=== PATIENT | female | born 1955 | race Caucasian/White ===

== ENCOUNTER → 2017-02-05 | Outpatient (CLI) | payer MEDICARE ==
[2017-02-05 12:13] LABS: EKG EKG PERFORMED
[2017-02-05 13:08] LABS: Basophils # (A) 0.1 k/uL (0-0.2); Basophils % (A) 1 %; CH 32.9; CHCM 34.3; Eosinophils # (A) 0.4 k/uL (0-0.7); Eosinophils % (A) 4 %; HCT 51.3 % (34.0-46.0); HDW 2.45; HGB 17.1 gm/dL (11.4-16.0); Luc # (Auto) 0.18; Luc % (Auto) 2; Lymphocytes # (A) 2.9 k/uL (1.0-4.8); Lymphocytes % (A) 31 %; MCH 32.2 pg (25.0-35.0); MCHC 33.4 g/dL (31.0-37.0); MCV 96.5 fL (80.0-100.0); Mean Platelet Volume 7.5; Monocytes # (A) 0.4 k/uL (0-1.0); Monocytes % (A) 4 %; Neutrophils # (A) 5.4 k/uL (1.3-7.7); Neutrophils % (A) 59 %; RBC 5.31 m/uL (3.80-5.40); WBC 9.3 k/uL (3.8-10.6); WBC (Perox) 8.92
[2017-02-05 13:17] LABS: Anion Gap 15 mmol/L; Blood Urea Nitrogen 19 mg/dL (7-17); Calcium 10.1 mg/dL (8.4-10.2); Carbon Dioxide 26 mmol/L (22-30); Chloride 104 mmol/L (98-107); Glucose 109 mg/dL (74-99); Non-African American GFR(MDRD) >60 (>60 ml/min/1.73 sqM); Sodium 145 mmol/L (137-145)
== END | disposition home or self-care (01) ==
LOC: LABPAT 12:03
PROVIDERS: ATTEND Obstetrics & Gynecology
DX: Z01.810 Encounter for preprocedural cardiovascular examination (principal); Z01.812 Encounter for preprocedural laboratory examination
CPT/HCPCS: 80048; 85025; 93005

== ENCOUNTER 2017-02-13 05:43 | Inpatient (IN) | payer MEDICARE ==
[2017-02-06 10:37] VITALS: BMI 42.9
[~2017-02-13 05:43] MED LIST: CLINDAMYCIN 900 MG in DEXTROSE 5% IN WATER 50 ML IVPB ONE
[2017-02-13] MEDS ORDERED: MIDAZOLAM 2 MG/2 ML VIAL IV PRN (05:59)
[2017-02-13] MEDS ORDERED: DEXAMETHASONE SOD PHOSPHATE 10 MG/ML 1 ML VIAL IV ONE (05:59)
--- NOTE | 2017-02-13 06:04 | P.HPOB ---
History of Present Illness H&P Date: 02/13/17 Chief Complaint: complex hyperplasia with atypia 61 year old G0 presents for Total laparoscopic hysterectomy bilateral salpingo- oopherectomy with da carlos alberto due to complex hyperplasia with atypia on endometrial biopsy. Review of Systems All systems: negative Constitutional: Denies chills, Denies fever Eyes: denies blurred vision, denies pain Ears, nose, mouth and throat: Denies headache, Denies sore throat Cardiovascular: Denies chest pain, Denies shortness of breath Respiratory: Denies cough Gastrointestinal: Denies abdominal pain, Denies diarrhea, Denies nausea, Denies vomiting Genitourinary: Denies dysuria, Denies hematuria Musculoskeletal: Denies myalgias Integumentary: Denies pruritus, Denies rash Neurological: Denies numbness, Denies weakness Psychiatric: Denies anxiety, Denies depression Endocrine: Denies fatigue, Denies weight change Past Medical History Past Medical History: Diabetes Mellitus, GERD/Reflux, Hypertension, Osteoarthritis (OA), Pneumonia, Sleep Apnea/CPAP/BIPAP Additional Past Medical History / Comment(s): left ventricular hypertrophy, hx pneumonia and high BP, occ PVC, no CPAP used, History of Any Multi-Drug Resistant Organisms: None Reported Past Surgical History: Adenoidectomy, Joint Replacement, Tonsillectomy Additional Past Surgical History / Comment(s): left eye surgery, D&C x 3, laproscopic and lysis of adhesions, rt knee replacement, left foot surgery as child Past Anesthesia/Blood Transfusion Reactions: Motion Sickness Past Psychological History: No Psychological Hx Reported Smoking Status: Former smoker Past Alcohol Use History: None Reported Past Drug Use History: None Reported - Past Family History Mother Family Medical History: No Reported History Medications and Allergies Home Medications Medication Instructions Recorded Confirmed Type Acetaminophen [Tylenol Arthritis] 650 mg PO DIRECTED PRN 02/06/17 02/06/17 History Aspirin 325 mg PO DAILY 02/06/17 02/06/17 History Citalopram Hydrobromide [CeleXA] 20 mg PO HS 02/06/17 02/06/17 History Ergocalciferol [Vitamin D2] 50,000 unit PO FR 02/06/17 02/06/17 History Furosemide [Lasix] 40 mg PO BID 02/06/17 02/06/17 History Linagliptin [Tradjenta] 5 mg PO DAILY 02/06/17 02/06/17 History Multivitamins, Thera [Multivitamin 1 tab PO DAILY 02/06/17 02/06/17 History (formulary)] Potassium Chloride ER [K-Dur 20] 20 meq PO BID 02/06/17 02/06/17 History diphenhydrAMINE [Benadryl] 25 mg PO DIRECTED PRN 02/06/17 02/06/17 History glyBURIDE [Diabeta] 2.5 mg PO AC-BID 02/06/17 02/06/17 History metFORMIN HCL 1,000 mg PO BID 02/06/17 02/06/17 History Allergies Allergy/AdvReac Type Severity Reaction Status Date / Time NSAIDS (Non-Steroidal Allergy Anaphylaxis Verified 02/06/17 10:24 Anti-Inflamma Penicillins Allergy per Verified 02/06/17 10:24 allergy testing scallops Allergy Unknown Verified 02/06/17 10:24 walnut Allergy Unknown Verified 02/06/17 10:24 grass,trees Allergy Unknown Uncoded 02/06/17 10:24 Exam Osteopathic Statement: *. No significant issues noted on an osteopathic structural exam other than those noted in the History and Physical/Consult. Heart: Regular rate and rhythm Lungs: Clear to auscultation bilaterally Abdomen: Soft, nontender Extremities: Negative Homans sign Assessment and Plan (1) Complex endometrial hyperplasia with atypia Status: Acute Plan: 1. Total laparoscopic hysterectomy with bilateral salpingo-oophorectomy using da Carlos Alberto
[2017-02-13 06:31] LABS: Glucose,Whole Blood 119 mg/dL (75-99)
[2017-02-13] MEDS: LACTATED RINGERS 1,000 ML IV SCH ×3 (06:35→22:04)
[2017-02-13] MEDS: ONDANSETRON 4 MG/2 ML VIAL IVP ONE ×2 (06:36→10:42)
[2017-02-13] MEDS ORDERED: PROPOFOL 10 MG/ML 20 ML VIAL IV ONE (07:15)
[2017-02-13] MEDS ORDERED: LIDOCAINE 1% INJ 10MG/ML (20 ML MDV) ONE (07:15)
[2017-02-13] MEDS ORDERED: HYDROmorphone (PF) 1 MG/ML ONE (07:15)
[2017-02-13] MEDS ORDERED: MIDAZOLAM 2 MG/2 ML VIAL ONE (07:15)
[2017-02-13] MEDS ORDERED: NEOSTIGMINE 1 MG/ML 10 ML VIAL ONE (07:15)
[2017-02-13] MEDS ORDERED: SUCCINYLCHOLINE CHLORIDE 100 MG/5 ML SYR IV ONE (07:15)
[2017-02-13] MEDS ORDERED: fentaNYL (PF) 50 MCG/ML 2 ML AMP ONE (07:15)
[2017-02-13] MEDS ORDERED: ePHEDrine 50 MG/ML 1 ML AMP ONE (07:15)
[2017-02-13] MEDS ORDERED: PHENYLEPHRINE-0.9% NACL SYG 1 MG/10 ML SYRINGE ONE (07:15)
[2017-02-13] MEDS ORDERED: ROCURONIUM BROMIDE 10 MG/ML 10 ML VIAL IV ONE (07:15)
[2017-02-13] MEDS ORDERED: GLYCOPYRROLATE 0.2 MG/ML 2 ML VIAL ONE (07:15)
[2017-02-13] MEDS ORDERED: BUPIVACAINE (PF) 0.25% 30 ML VIAL SQ ONE (07:46)
[2017-02-13 10:38] LABS: Glucose,Whole Blood 208 mg/dL (75-99)
[2017-02-13] MEDS: HYDROmorphone 1 MG/ML 1 ML SYRINGE IVP PRN ×2 (10:42→10:48)
[2017-02-13] MEDS ORDERED: INSULIN LISPRO (humaLOG) 300 UNIT/3 ML VIAL SQ ONE (11:11)
[2017-02-13] MEDS ORDERED: ACETAMINOPHEN IV (For NPO) 1,000 MG in EMPTY BAG 1 BAG IVPB PRN (12:01)
[2017-02-13] MEDS ORDERED: SIMETHICONE 80 MG CHEWABLE PO PRN (12:01)
[2017-02-13] MEDS ORDERED: HYDROmorphone PCA 5 MG/25 ML SYRINGE IV PRN (12:01)
[2017-02-13] MEDS ORDERED: NALOXONE 0.4 MG/ML 1 ML VIAL IV PRN (12:01)
[2017-02-13] MEDS ORDERED: ONDANSETRON 4 MG/2 ML VIAL IVP PRN (12:01)
[2017-02-13] MEDS ORDERED: METOCLOPRAMIDE 5 MG/ML 2 ML VIAL IVP PRN (12:01)
[2017-02-13] MEDS ORDERED: ZOLPIDEM 5 MG TAB PO PRN (12:01)
[2017-02-13] MEDS ORDERED: ACETAMINOPHEN TAB 325 MG TAB PO PRN (13:13)
[2017-02-13] MEDS ORDERED: diphenhydrAMINE 25 MG CAP PO PRN (13:13)
[2017-02-13] MEDS: glipiZIDE 5 MG TAB PO SCH (16:48)
[2017-02-13] MEDS: HEPARIN SODIUM,PORCINE 5,000 UNIT/ML 1 ML VIAL SQ SCH (16:56)
[2017-02-13] MEDS: FUROSEMIDE 40 MG TAB PO SCH (16:56)
[2017-02-13] MEDS: INSULIN LISPRO (humaLOG) 300 UNIT/3 ML VIAL SQ SCH ×2 (17:22→22:02)
[2017-02-13 17:40] LABS: Glucose,Whole Blood 153 mg/dL (75-99)
[2017-02-13 21:31] LABS: Glucose,Whole Blood 139 mg/dL (75-99)
[2017-02-13] MEDS: CITALOPRAM HYDROBROMIDE 20 MG TAB PO SCH (21:59)
[2017-02-13] MEDS: POTASSIUM CHLORIDE ER 20 MEQ TAB.ER PO SCH (21:59)
[2017-02-13] MEDS: SENNOSIDES-DOCUSATE SODIUM 1 EACH TAB PO SCH (21:59)
[2017-02-14] MEDS: metFORMIN 500 MG TAB PO SCH ×3 (00:05→20:34)
[2017-02-14] MEDS: HEPARIN SODIUM,PORCINE 5,000 UNIT/ML 1 ML VIAL SQ SCH ×3 (00:29→17:18)
[2017-02-14] MEDS ORDERED: LIDOCAINE 1% INJ 10MG/ML (20 ML MDV) ONE (07:15)
[2017-02-14] MEDS ORDERED: PROPOFOL 10 MG/ML 20 ML VIAL IV ONE (07:15)
[2017-02-14] MEDS ORDERED: ePHEDrine 50 MG/ML 1 ML AMP ONE (07:15)
[2017-02-14] MEDS ORDERED: MIDAZOLAM 2 MG/2 ML VIAL ONE (07:15)
[2017-02-14] MEDS ORDERED: fentaNYL (PF) 50 MCG/ML 2 ML AMP ONE (07:15)
[2017-02-14] MEDS ORDERED: GLYCOPYRROLATE 0.2 MG/ML 2 ML VIAL ONE (07:15)
[2017-02-14] MEDS ORDERED: HYDROmorphone (PF) 1 MG/ML ONE (07:15)
[2017-02-14] MEDS ORDERED: PHENYLEPHRINE-0.9% NACL SYG 1 MG/10 ML SYRINGE ONE (07:15)
[2017-02-14] MEDS ORDERED: SUCCINYLCHOLINE CHLORIDE 100 MG/5 ML SYR IV ONE (07:15)
[2017-02-14] MEDS ORDERED: NEOSTIGMINE 1 MG/ML 10 ML VIAL ONE (07:15)
[2017-02-14] MEDS ORDERED: ROCURONIUM BROMIDE 10 MG/ML 10 ML VIAL IV ONE (07:15)
[2017-02-14 07:31] LABS: Glucose,Whole Blood 107 mg/dL (75-99)
[2017-02-14 07:52] LABS: Basophils % (A) 0 %; CH 32.1; CHCM 33.4; Eosinophils # (A) 0.1 k/uL (0-0.7); Eosinophils % (A) 0 %; HCT 41.4 % (34.0-46.0); HDW 2.36; Luc # (Auto) 0.13; Luc % (Auto) 1; Lymphocytes # (A) 2.6 k/uL (1.0-4.8); Lymphocytes % (A) 23 %; MCH 32.9 pg (25.0-35.0); MCHC 34.1 g/dL (31.0-37.0); MCV 96.4 fL (80.0-100.0); Mean Platelet Volume 7.5; Monocytes # (A) 0.6 k/uL (0-1.0); Monocytes % (A) 5 %; Neutrophils % (A) 70 %; RBC 4.29 m/uL (3.80-5.40); RDW 12.8 % (11.5-15.5); WBC 11.4 k/uL (3.8-10.6); WBC (Perox) 11.54
[2017-02-14 08:07] LABS: HGB 14.1 gm/dL (11.4-16.0)
--- NOTE | 2017-02-14 08:13 | P.OP ---
Date of Procedure: 02/13/17 Preoperative Diagnosis: 1. Complex hyperplasia with atypia Postoperative Diagnosis: 1. Complex hyperplasia with atypia 2. Cervical fibroid 3. Enlarged right ovary and cystic left adnexa Procedure(s) Performed: Diagnostic laparoscopy, total abdominal hysterectomy bilateral salpingo- oophorectomy Implants: Anesthesia: MILTONA Surgeon: Jennifer Ding Front Office Associate #1: Parish Swain Estimated Blood Loss (ml): 150 IV fluids (ml): 1,400 Urine output (ml): 200 Pathology: other (Uterus, cervix, bilateral tubes and ovaries) Condition: stable Disposition: PACU Indications for Procedure: Endometrial biopsy in the office showed complex hyperplasia with atypia Operative Findings: The uterus sounded to 12 cm, the laparoscopy revealed that the uterus had a very large fibroid in the posterior aspect near the cervix obliterating the posterior cul-de-sac. She had an enlarged right ovary and a cystic area possibly of the left fallopian tube or the left ovary. Description of Procedure: Patient taken the operating room where general anesthesia was obtained without difficulty. She is prepped and draped in normal sterile fashion dorsal lithotomy position, legs placed in the Alessio stirrups. Weighted speculum placed in the vagina and the anterior lip the cervix was grasped with single- tooth tenaculum. The uterus sounded to 12 cm and the cervix diameter was 3.5 cm. The appropriate manipulator tip and ring were placed on the Matilde manipulator. The Matilde manipulator was then placed in the uterus. Bunch catheter was also placed. Attention was then turned to the abdomen and gloves were changed. A 5 mm supraumbilical incision was made the scalpel and a 5 mm optical trocar was placed under direct visualization. 10 cm to the right of this and 2 cm down a 5 mm incision was made and 8 mm da Tila port was placed under direct visualization. Same measurements on the opposite side of the patient's abdomen, the 5 mm incision was made and 8 mm da Tila port was placed under direct visualization. In the left upper quadrant a 10 mm incision was made and a 10 mm optical trocar was placed under direct visualization. After the patient was placed in seated Trendelenburg we surveyed the pelvis. There was found to be a very large posterior fibroid very close to the cervix obliterating the view of the entire cervix and posterior cul-de-sac. I was not able to see around the uterosacral ligaments and get a proper view of the adnexa. The manipulation of the uterus was difficult. I felt at this point that a robotic hysterectomy was going to be quite difficult and possibly impossible at this point. The patient was not tolerating Trendelenburg very well either from an anesthesia standpoint. It was felt safest for the patient to convert to an open procedure and do a total abdominal hysterectomy at this point. The trochars were removed and the port sites were closed with 4-0 Vicryl in a subcuticular fashion. The patient was placed in supine position she was prepped again and redraped. A Pfannenstiel skin incision was made with scalpel carried through to underlying layer fascia with the Bovie. Fascia was incised in midline and carried bilaterally with Fontana scissors. The superior aspect fascial incision was elevated and the underlying rectus muscles were dissected off with the Mayos. The inferior aspect of same incision with 6 elevated and the underlying rectus muscles were dissected off with the Mayos. The rectus muscles were in the midline peritoneum was identified tented up and entered sharply with the Metzenbaums. The incision was extended superiorly and inferiorly with good visualization of the bladder. The [place] retractor was then placed. The bowels were packed away with moist laparotomy sponges. The cornu of the uterus were grasped with curved Brinda clamps. The fibroid was seen to be coming off the posterior aspect of the uterus more on the left side. The cystic lesion coming off the left adnexa was clamped at its pedicle cut and suture ligated. It was removed and taken for specimen. The left round ligament fallopian tube and utero-ovarian ligament were clamped cut and suture ligated. The broad ligament was clamped cut and suture ligated. Then the enlarged right ovary and right fallopian tube were lifted the right infundibulopelvic ligament was clamped cut and suture ligated. The broad ligament on this side was then clamped cut and suture ligated. The bladder flap was then taken down using Metzenbaums. The right lower uterine artery was skeletonized and clamped cut and suture ligated. The left broad ligament was dissected down around the fibroid and forward towards the bladder flap. The left uterine artery was skeletonized clamped cut and suture ligated. The uterosacral ligaments were clamped cut and suture ligated. This was done in a stepwise fashion down the cervix to the level of the cervicovaginal junction. Once we entered the cervicovaginal junction the uterus was removed cervix intact. The opening to the vagina was closed using 0 Vicryl in a running locked fashion. The left ovary was then lifted using a [place] and the infundibulopelvic ligament was clamped cut and suture ligated. The ovary was removed and sent with the specimen. The pelvis was copiously irrigated. Hemostasis was assured. All instruments and sponges were removed from the pelvis. Peritoneum was reapproximated with 2-0 Vicryl in a running fashion. The fascia was reapproximated with 0 Vicryl in interrupted fashion. The fascia was reapproximated with 0 Vicryl in a running fashion. The subcutaneous tissues closed with 3-0 Vicryl in a running fashion. The skin was closed with ramonita. Patient tolerated the procedure well, sponge and instrument counts are correct 2 and she was taken to recovery room in stable condition.
--- NOTE | 2017-02-14 08:17 | P.PN ---
Progress Note - Text Status post total abdominal hysterectomy and left salpingo-oophorectomy postoperative day #1 Patient seen and examined. She is tolerating clears. She is feeling rumbling in her stomach but has not passed gas yet. Her Bunch catheter was removed about an hour ago but she has not voided yet. Her pain is well-controlled with minimal use of her [facility]. Denies nausea, vomiting, chest pain, shortness of breath or calf pain. She is ambulating around her room without problems. Vital signs are stable Heart regular rhythm Lungs clear to auscultation Abdomen soft, nontender, incision clean, dry, intact Extremities negative Homans sign Assessment: 1. status post total abdominal hysterectomy bilateral salpingo- oophorectomy postoperative day #1 2. Diabetes mellitus Plan 1. DC [facility] and by mouth pain medication 2. Continue blood sugar control and increase ambulation regular diet with positive flatus
[2017-02-14] MEDS: POTASSIUM CHLORIDE ER 20 MEQ TAB.ER PO SCH ×2 (08:33→20:35)
[2017-02-14] MEDS: SENNOSIDES-DOCUSATE SODIUM 1 EACH TAB PO SCH ×2 (08:33→20:35)
[2017-02-14] MEDS: glipiZIDE 5 MG TAB PO SCH ×2 (08:34→17:18)
[2017-02-14] MEDS: FUROSEMIDE 40 MG TAB PO SCH ×2 (08:34→17:18)
[2017-02-14] MEDS: Acetaminophen-Codeine 300-30mg TAB PO PRN ×3 (10:01→21:58)
[2017-02-14] MEDS ORDERED: ACETAMINOPHEN TAB 325 MG TAB PO PRN (10:08)
[2017-02-14 10:12] LABS: Hemoglobin A1C 5.8 % (4.2-6.1)
[2017-02-14 11:48] LABS: Glucose,Whole Blood 111 mg/dL (75-99)
[2017-02-14] MEDS: LINAGLIPTIN 5 MG TABLET PO SCH (11:52)
[2017-02-14] MEDS: INSULIN LISPRO (humaLOG) 300 UNIT/3 ML VIAL SQ SCH ×3 (11:52→23:09)
[2017-02-14 17:53] LABS: Glucose,Whole Blood 83 mg/dL (75-99)
[2017-02-14] MEDS: CITALOPRAM HYDROBROMIDE 20 MG TAB PO SCH (20:36)
[2017-02-14 20:44] LABS: Glucose,Whole Blood 75 mg/dL (75-99)
[2017-02-15] MEDS: HEPARIN SODIUM,PORCINE 5,000 UNIT/ML 1 ML VIAL SQ SCH ×2 (00:19→08:23)
[2017-02-15 07:46] LABS: Glucose,Whole Blood 98 mg/dL (75-99)
[2017-02-15] MEDS: INSULIN LISPRO (humaLOG) 300 UNIT/3 ML VIAL SQ SCH (07:53)
[2017-02-15] MEDS: SENNOSIDES-DOCUSATE SODIUM 1 EACH TAB PO SCH (08:22)
[2017-02-15] MEDS: FUROSEMIDE 40 MG TAB PO SCH (08:23)
[2017-02-15] MEDS: metFORMIN 500 MG TAB PO SCH (08:24)
[2017-02-15] MEDS: LINAGLIPTIN 5 MG TABLET PO SCH (08:24)
[2017-02-15] MEDS: glipiZIDE 5 MG TAB PO SCH (08:25)
[2017-02-15] MEDS: POTASSIUM CHLORIDE ER 20 MEQ TAB.ER PO SCH (08:25)
[2017-02-15 09:28] VITALS: BP 149/76; PULSE 95; RESP 19; TEMP 97.6
[2017-02-15] MEDS: Acetaminophen-Codeine 300-30mg TAB PO PRN (09:46)
--- NOTE | 2017-02-15 10:47 | P.DS ---
Providers Date of admission: 02/13/17 10:23 Expected date of discharge: 02/15/17 Attending physician: Jennifer Ding Primary care physician: Sin Aguilera - Discharge Diagnosis(es) (1) Complex endometrial hyperplasia with atypia Current Visit: Yes Status: Acute (2) Status post total abdominal hysterectomy and bilateral salpingo-oophorectomy Current Visit: Yes Status: Acute Hospital Course: Patient presented for TLSO due to complicated hyperplasia with atypia but underwent a total abdominal hysterectomy with bilateral salpingo-oophorectomy due to a unsuspected large fibroid. Her postoperative course has gone very well. Her pain is well-controlled with Tylenol 3. She is ambulating and voiding without difficulty. Her incision is clean, dry, intact with ramonita. Tolerating regular diet and passing flatus. She denies nausea, vomiting, chest pain, shortness of breath or calf pain. She'll be discharged home postoperative day #2 in stable condition to follow-up with me in 3 days for staple removal. Plan - Discharge Summary New Discharge Prescriptions: New Acetaminophen-Codeine 300-30mg [Tylenol w/codeine #3] 2 each PO Q4HR PRN #30 tab PRN Reason: Pain INSULIN LISPRO (humaLOG) [humaLOG (formulary)] 0 unit SQ ACHS vial Sennosides-Docusate Sodium [Senokot-S] 2 each PO BID #60 tab Zolpidem [Ambien] 5 mg PO HS PRN tab PRN Reason: Insomnia Continue metFORMIN HCL 1,000 mg PO BID glyBURIDE [Diabeta] 2.5 mg PO AC-BID Ergocalciferol [Vitamin D2 (DRISDOL)] 50,000 unit PO FR Multivitamins, Thera [Multivitamin (formulary)] 1 tab PO DAILY Linagliptin [Tradjenta] 5 mg PO DAILY Aspirin 325 mg PO DAILY Potassium Chloride ER [K-Dur 20] 20 meq PO BID Furosemide [Lasix] 40 mg PO BID Acetaminophen [Tylenol Arthritis] 650 mg PO Q6H PRN PRN Reason: Pain diphenhydrAMINE [Benadryl] 25 mg PO Q6H PRN PRN Reason: Allergy Symptoms Citalopram Hydrobromide [CeleXA] 20 mg PO HS Discharge Medication List Acetaminophen [Tylenol Arthritis] 650 mg PO Q6H PRN 02/06/17 [History] Aspirin 325 mg PO DAILY 02/06/17 [History] Citalopram Hydrobromide [CeleXA] 20 mg PO HS 02/06/17 [History] Ergocalciferol [Vitamin D2 (DRISDOL)] 50,000 unit PO FR 02/06/17 [History] Furosemide [Lasix] 40 mg PO BID 02/06/17 [History] Linagliptin [Tradjenta] 5 mg PO DAILY 02/06/17 [History] Multivitamins, Thera [Multivitamin (formulary)] 1 tab PO DAILY 02/06/17 [History ] Potassium Chloride ER [K-Dur 20] 20 meq PO BID 02/06/17 [History] diphenhydrAMINE [Benadryl] 25 mg PO Q6H PRN 02/06/17 [History] glyBURIDE [Diabeta] 2.5 mg PO AC-BID 02/06/17 [History] metFORMIN HCL 1,000 mg PO BID 02/06/17 [History] Acetaminophen-Codeine 300-30mg [Tylenol w/codeine #3] 2 each PO Q4HR PRN #30 tab 02/15/17 [Rx] INSULIN LISPRO (humaLOG) [humaLOG (formulary)] 0 unit SQ ACHS vial 02/15/17 [Rx ] Sennosides-Docusate Sodium [Senokot-S] 2 each PO BID #60 tab 02/15/17 [Rx] Zolpidem [Ambien] 5 mg PO HS PRN tab 02/15/17 [Rx] Follow up Appointment(s)/Referral(s): Jennifer Ding DO [Doctor of Osteopathic Medicine] - 02/18/17
== END 2017-02-15 12:18 | disposition home or self-care (01) | DRG 743 ==
LOC: OR 05:43 → 6PED 10:05 → OR 10:23 → 6PED 10:23
PROVIDERS: ADMIT Obstetrics & Gynecology; ATTEND Obstetrics & Gynecology
PROC: 0UT90ZZ Resection of Uterus, Open Approach (ICD-10-PCS; principal; 2017-02-14)
PROC: 0UJD4ZZ Inspection of Uterus and Cervix, Percutaneous Endoscopic Approach (ICD-10-PCS; 2017-02-14)
PROC: 0UT20ZZ Resection of Bilateral Ovaries, Open Approach (ICD-10-PCS; 2017-02-14)
PROC: 0UT70ZZ Resection of Bilateral Fallopian Tubes, Open Approach (ICD-10-PCS; 2017-02-14)
DX: N85.02 Endometrial intraepithelial neoplasia [EIN] (principal); I10 Essential (primary) hypertension; N83.8 Other noninflammatory disorders of ovary, fallopian tube and broad ligament; D26.0 Other benign neoplasm of cervix uteri; E11.9 Type 2 diabetes mellitus without complications; K21.9 Gastro-esophageal reflux disease without esophagitis; M19.90 Unspecified osteoarthritis, unspecified site; G47.30 Sleep apnea, unspecified; I49.3 Ventricular premature depolarization; Z96.651 Presence of right artificial knee joint; Z87.891 Personal history of nicotine dependence; Z79.82 Long term (current) use of aspirin; Z79.84 Long term (current) use of oral hypoglycemic drugs; Z79.899 Other long term (current) drug therapy; Z88.6 Allergy status to analgesic agent; Z88.0 Allergy status to penicillin
CPT/HCPCS: 83036; 85025; 86850; 86900; 86901

== ENCOUNTER → 2017-04-28 | Outpatient (CLI) | payer MEDICARE ==
--- NOTE | 2017-04-29 12:55 | MM ---
Reason for exam: screening (asymptomatic). Last mammogram was performed 2 years and 5 months ago. History: Patient is postmenopausal and is nulliparous. Family history of breast cancer in aunt. Physical Findings: A clinical breast exam by your physician is recommended on an annual basis and results should be correlated with mammographic findings. MG 3D Screening Mammo W/Cad Bilateral CC and MLO view(s) were taken. Prior study comparison: November 28, 2014, bilateral MG screening mammo w CAD. April 26, 2013, bilateral digital screening mammo w/CAD. The breast tissue is heterogeneously dense. This may lower the sensitivity of mammography. No significant changes when compared with prior studies. ASSESSMENT: Benign, BI-RAD 2 RECOMMENDATION: Routine screening mammogram of both breasts in 1 year.
== END | disposition home or self-care (01) ==
LOC: RADMAMWWP 09:14
PROVIDERS: ATTEND Internal Medicine
DX: Z12.31 Encounter for screening mammogram for malignant neoplasm of breast (principal)
CPT/HCPCS: 77063; G0202

== ENCOUNTER → 2018-12-01 | Outpatient (CLI) | payer MEDICARE ==
--- NOTE | 2018-12-01 09:35 | BD ---
EXAMINATION TYPE: Axial Bone Density DATE OF EXAM: 12/01/2018 COMPARISON: 2012 CLINICAL HISTORY: Height: 62.75 inches Weight: 258 FRAX RISK QUESTIONS: Alcohol (3 or more units per day): no Family History (Parent hip fracture): no Glucocorticoids (More than 3mos): no (Ex: prednisone, prednisolone, methylprednisolone, dexamethasone, and hydrocortisone). History of Fracture in Adulthood: yes-nose, fingers, both ankles, right foot over the years Secondary Osteoporosis: 1. Type 1 Diabetes: no 2. Hyperthyroidism: no 3. Menopause before 45: no, 51 4. Malnutrition: no 5. Chronic liver disease: no Rheumatoid Arthritis: no Current Tobacco Use: yes RISK FACTORS HISTORY OF: Family History of Osteoporosis: yes, mother Active: yes Diet low in dairy products/other sources of calcium: at least a couple sevings a week Postmenopausal woman: yes Take estrogen and/or progesterone medications: not now Hormonal contraceptives about 20 years Lost more than 2 inches in height since high school: unsure, states height at one time may have been about 64.5 to 65 inches Frequent falls: trips sometimes, but has history of this since younger Poor Health: patient states"fair" health Hyperparathyroidism: no Adrenal Insufficiency: no MEDICATIONS: Prednisone or other steroids: no Thyroid Medications: no Osteoporosis Medications: no Additional Medications: oral meds for diabetes ; Vitamin D Additional History: type II diabetic; knee replacement EXAM MEASUREMENTS: Bone mineral densitometry was performed using the [employer] System. Bone mineral density as measured about the Lumbar spine is: ----- L1-L4(G/cm2): 1.393 T Score Values are as follows: ----- L2: 0.9 ----- L3: 1.8 ----- L4: 2.3 ----- L1-L4: 1.8 Bone mineral density has: Increased 9.7% since study of: 04/26/2013 Bone mineral density about the R hip (g/cm2): 1.087 Bone mineral density about the L hip (g/cm2): 1.061 T Score values are as follows: -----R Neck: 0.4 -----L Neck: 0.2 -----R Total: 0.8 -----L Total: 0.9 Bone mineral density has: Increased 2.5% since study of: 04/26/2013 IMPRESSION: No evidence for osteoporosis or osteopenia. NOTE: T-SCORE=SD OF THE YOUNG ADULT MEAN.
--- NOTE | 2018-12-02 12:29 | MM ---
Reason for exam: screening (asymptomatic). Last mammogram was performed 1 year and 7 months ago. History: Patient is postmenopausal and is nulliparous. Family history of breast cancer in aunt. Took hormonal contraceptives for 20 years. Physical Findings: A clinical breast exam by your physician is recommended on an annual basis and results should be correlated with mammographic findings. MG Screening Mammo w CAD Bilateral CC and MLO view(s) were taken. Prior study comparison: April 28, 2017, bilateral MG 3d screening mammo w/cad. November 28, 2014, bilateral MG screening mammo w CAD. The breast tissue is heterogeneously dense. This may lower the sensitivity of mammography. Benign appearing bilateral calcifications. No suspicious abnormality. No significant changes when compared with prior studies. ASSESSMENT: Benign, BI-RAD 2 RECOMMENDATION: Routine screening mammogram of both breasts in 1 year.
== END | disposition home or self-care (01) ==
LOC: RADMAMWWP 08:10
PROVIDERS: ATTEND Internal Medicine
DX: Z12.31 Encounter for screening mammogram for malignant neoplasm of breast (principal); M89.9 Disorder of bone, unspecified
CPT/HCPCS: 77067; 77080